=== PATIENT | female | born 1975 | race Caucasian/White ===

== ENCOUNTER 2016-08-27 09:19 | Emergency (ER) | payer OTHER ==
[~2016-08-27 09:19] MED LIST: CLAR5TAB7 PO; FLUTISP; PROBCAP4 PO; VITMTA PO; XARE15TA PO
[2016-08-27 10:17] LABS: BASO % 0.3 % (0.0-1.0); EOS # 0.3 K/mm3 (0.0-0.50); EOS % 4.1 % (0.0-3.0); LARGE UNSTAINED CELL # 0.1 K/mm3 (0.0-0.4); LARGE UNSTAINED CELL % 1.4 % (0.0-4.0); LYMPH # 1.8 K/mm3 (1.5-4.5); LYMPH % 22.8 % (24.0-44.0); MEAN CORPUSCULAR HGB CONC 32.9 g/dl (32.0-36.5); MEAN CORPUSCULAR VOLUME 88.2 fl (80.0-96.0); MONO # 0.3 K/mm3 (0.0-0.8); MONO % 4.3 % (0.0-5.0); PLATELET COUNT, AUTOMATED 276 k/mm3 (150-450); RED CELL DISTRIBUTION WIDTH 13.4 % (11.5-14.5); WHITE BLOOD COUNT 7.4 K/mm3 (4.0-10.0)
[2016-08-27] MEDS ORDERED: ONDANSETRON 4MG/2ML VIAL (J2405) As Ordered ONE (10:21)
[2016-08-27] MEDS ORDERED: MORPHINE 4 MG/ML 1ML SYRINGE As Ordered ONE (10:21)
[2016-08-27 10:22] LABS: CONTROL LINE HCG INT CTR LINE PRESENT
[2016-08-27 10:31] LABS: ANION GAP 8 MEQ/L (8-16); BLOOD UREA NITROGEN 10 MG/DL (7-18); CALCIUM LEVEL 8.6 MG/DL (8.5-10.1); CARBON DIOXIDE LEVEL 26 MEQ/L (21-32); CHLORIDE LEVEL 104 MEQ/L (98-107); CREATININE FOR GFR 0.65 MG/DL (0.55-1.02); GLOMERULAR FILTRATION RATE > 60.0 (>60); GLUCOSE, FASTING 97 MG/DL (70-105); POTASSIUM SERUM 3.9 MEQ/L (3.5-5.1); SODIUM LEVEL 138 MEQ/L (136-145)
--- NOTE | 2016-08-27 10:56 | REP ---
CT Head without contrast HISTORY: Syncope COMPARISON: None There is no intraparenchymal hemorrhage, acute infarct, mass or midline shift. The ventricular system is normal in appearance. There is no extra cerebral collection. There is no fracture. Mucosal thickening is present in the left ethmoid , frontal and sphenoid sinuses. IMPRESSION: There is no intracranial lesion. Signed by Rex Cox MD 08/27/2016 10:48 A
--- NOTE | 2016-08-27 11:34 | REP ---
Clinical: Syncope and chest pain . Comparison: 06/06/2016 . Findings: The mediastinum and cardiac silhouette are stable and within normal limits for portable technique. The lung gan are clear without acute consolidation, effusion, or pneumothorax. Skeletal structures are intact. Impression: Normal portable chest x-ray Signed by Hong Grant MD 08/27/2016 11:26 A
[2016-08-27] MEDS ORDERED: ISOVUE-370 76% 100ML VIAL (Q9967) As Ordered ONE (12:10)
--- NOTE | 2016-08-27 12:50 | REP ---
Clinical: Syncope with acute chest pain history of pulmonary embolus. Comparison: 05/09/2016. Technique: Axial contrast enhanced images from the thoracic inlet to the upper abdomen using 100 ml Isovue 370 intravenous contrast material with coronal and sagittal re-formations. Findings: Satisfactory enhancement of the pulmonary vasculature is achieved and no filling defects are identified to suggest pulmonary embolus. Thoracic aorta is normal caliber without aneurysm or dissection. Heart and pericardium are normal. Bilateral lung gan are well aerated and clear without acute pulmonary parenchymal consolidation or atelectasis. No nodule or mass lesion. No pleural effusion/reaction. No pneumothorax. No adenopathy. Impression: No evidence for pulmonary embolus. No acute pleuroparenchymal or mediastinal process. Signed by Hong Grant MD 08/27/2016 12:42 P
--- NOTE | 2016-08-27 16:32 | EDDOCDS ---
Nurse's Notes [facility] Name: Harleen Gar Age: 41 yrs Sex: Female : 1975 Arrival Date: 08/27/2016 Time: 09:19 Bed 6 Private MD: Bhavesh [facility] Diagnosis: Chest pain, unspecified;Syncope and collapse;Headache Presentation: 08/27 09:23 Presenting complaint: Patient states: Pt presents with c/o syncope and passed out dls during clinical's this morning. Pt has hx of PE last fall. Pt states does have chest left sided onset after she passed out. Pt also c/o headache c 2weeks with elevated heart rate. Adult Sepsis Screening: The patient does not have new or worsening altered mentation. Patient's respiratory rate is less than 22. Systolic blood pressure is greater than 100. Patient has a qSOFA score of 0- Negative Sepsis Screen. Suicide/Homicide risk assessment- the patient denies having any suicidal and/or homicidal ideations and does not present with any other emotional, behavioral or mental health complaints. Status: The patient is a dependent. Transition of care: patient was not received from another setting of care. 09:23 Acuity: ELICEO Level 3 dls 09:23 Method Of Arrival: Wheelchair dls Triage Assessment: 09:28 General: Appears in no apparent distress, well developed, well nourished, well groomed, dls Behavior is cooperative. Pain: Pain currently is 6 out of 10 on a pain scale. HIV screening NA for this visit Offered previously. NURSE EMERGENCY: 09:28 LMP 08/15/2016 dls Historical: - Allergies: SULFA (SULFONAMIDES) (Rash); - Home Meds: 1. Claritin-D 12 Hour 5-120 mg Oral Tb12 2. Xarelto 20 mg oral tab 1 tab once daily - PMHx: Heart Murmur; PE; - PSHx: ; Appendectomy; - Social history: Smoking status: Patient/guardian denies using No barriers to communication noted, The patient speaks fluent Botswanan. - Family history: Not pertinent. - : The pt / caregiver states he / she is on anticoagulants: Xarelto Home medication list is obtained from the patient, [employer] import data. - Exposure Risk Screening:: None identified. Screenin:28 Screening information is obtained from the patient. Fall risk: No risks identified. srm Assistance ADL's: requires no assistance with activities of daily living. Abuse/DV Screen: The patient / caregiver reports he/she is: not in a situation that causes fear, pain or injury. Nutritional screening: No deficits noted. Advance Directives: Currently, there is no health care proxy. There is no active DNR order. home support is adequate. Assessment: 10:09 General: Appears in no apparent distress, Behavior is appropriate for age, cooperative. srm Neurological: Level of Consciousness is awake, alert, Oriented to person, place, time, Engagement Manager are equal bilaterally Moves all extremities. Full function Speech is normal, Facial symmetry appears normal, Pupils are PERRLA. Cardiovascular: Rhythm is sinus rhythm. Respiratory: Airway is patent Respiratory effort is even, unlabored, Breath sounds are clear bilaterally. 10:51 General: Appears in no apparent distress, Behavior is appropriate for age, cooperative. srm Pain: Location: headache Pain currently is 5 out of 10 on a pain scale. 12:03 Reassessment: Patient appears in no apparent distress at this time. General: Appears in srm no apparent distress, Behavior is appropriate for age, cooperative. Neurological: Level of Consciousness is awake, alert, Oriented to person, place, time, Moves all extremities. Full function Speech is normal, Facial symmetry appears normal, Pupils are PERRLA. Respiratory: No deficits noted. GI: No deficits noted. Derm: No deficits noted. 13:30 General: resting on stretcher at bedside, voices no c/o. srm 13:30 Reassessment: Patient appears in no apparent distress at this time. General: Appears in srm no apparent distress, Behavior is appropriate for age, cooperative. Neurological: Level of Consciousness is awake, alert, Oriented to person, place, time, Engagement Manager are equal bilaterally Moves all extremities. Full function Speech is normal, Facial symmetry appears normal, Pupils are PERRLA. Cardiovascular: Rhythm is sinus rhythm. Respiratory: No deficits noted. Airway is patent Respiratory effort is even, unlabored, Breath sounds are clear bilaterally. Respiratory: No deficits noted. 16:25 General: Appears in no apparent distress, Behavior is appropriate for age, cooperative. srm Neurological: No deficits noted. Cardiovascular: No deficits noted. Respiratory: No deficits noted. GI: No deficits noted. Vital Signs: 09:22 BP 105 / 73; Pulse 53; Resp 18; Temp 97.9(O); Pulse Ox 100% on R/A; Weight 90.72 kg ct3 (R); Height 5 ft. 6 in. (167.64 cm) (R); Pain 6/10; 10:09 BP 109 / 61 LA Supine (auto/); Pulse 62; srm 10:10 BP 127 / 66 LA Sitting (auto/); Pulse 64; srm 10:10 BP 128 / 74 LA Standing (auto/); Pulse 68; srm 10:22 Pulse 66 MON; Pulse Ox 96% ; srm 10:22 BP 110 / 64 (auto/); srm 10:49 Pulse 66 MON; Pulse Ox 95% ; srm 10:49 BP 106 / 72 (auto/); srm 10:50 BP 106 / 72; Pulse 67; Resp 18; Pulse Ox 99% ; Pain 5/10; srm 10:52 Pulse 64 MON; Pulse Ox 95% ; srm 10:52 BP 110 / 76 (auto/); srm 16:21 Temp 98.2(T); lr2 09:22 Body Mass Index 32.28 (90.72 kg, 167.64 cm) ct3 Vitals: 09:22 Log In Time: August 27, 2016 at 09:19. RN notified that patient meets Red Flag ct3 criteria. 09:28 Glucose Measurement d-stick on floor 110. dls ED Course: 09:21 Patient visited by Sarah Braxton, JAYRO. ct3 09:21 Bhavesh is Private Physician. ct3 09:21 Bhavesh OB is Private Physician. ct3 09:21 Bhavesh [facility] is Private Physician. ct3 09:21 Patient moved to Waiting ct3 09:23 Patient moved to Pre RCE ct3 09:27 Triage Initiated dls 09:30 Patient moved to 6 dls 09:41 EKG done. Reviewed by Clint John MD. jam1 09:53 Clint John MD is Attending Physician. ml 09:53 Patient visited by Clint John MD. ml 10:05 [facility] Payment Agreement was scanned into 5app and attached to record. mm15 10:11 CARDIAC MARKER PANEL Sent. srm 10:51 Patient visited by Glenda Green RN. srm 11:16 CT Head Without Contrast Returned. EDMS 11:45 Chest, 1 View Returned. EDMS 12:09 Patient visited by Carol Varner PCA. ar3 13:09 Patient visited by Carol Varner PCA. ar3 13:17 CT Chest Angio R/O PE Returned. EDMS 13:46 Pt visited by . srm 13:46 Patient visited by Glenda Green, RN. srm 13:46 The patient / caregiver is instructed regarding the plan of care and ED course. Patient srm has correct armband on for positive identification. Placed in gown. Bed in low position. Call light in reach. Side rails up X2. on arrival. Diet: Patient given regular meal. 15:39 EKG done. (by ED staff). Reviewed by Clint John MD. ar3 15:44 Patient visited by Carol Varner PCA. ar3 16:06 Patient visited by Glenda Green, CARMEN. srm 16:13 DARLING Ospina is Referral Physician. ml 16:13 Cecil Dunham is Referral Physician. ml 16:28 Discontinued lock intact, bleeding controlled, pressure dressing applied, No srm redness/swelling at site. No procedures done that require assistance. Administered Medications: 10:34 Drug: morphine 4 mg Route: IVP; Site: left antecubital; k 10:50 Follow up: BP 106 / 72; Pulse 67 bpm; Resp 18 bpm; Pulse Ox 99% ; Pain 5/10 Adult srm 10:35 Drug: NS 0.9% 1000 ml Route: IV; Rate: bolus; Site: left antecubital; k 10:35 Drug: Ondansetron 4 mg Route: IVP; Site: left antecubital; k 10:51 Follow up: Response: No Adverse Reaction srm Order Results: Lab Order: CBC with Diff; SPEC'M 08/27/16 09:58 Test: WHITE BLOOD COUNT; Value: 7.4; Range: 4.0-10.0; Units: K/mm3; Status: F Test: RED BLOOD COUNT; Value: 4.63; Range: 4.00-5.40; Units: M/mm3; Status: F Test: HEMOGLOBIN; Value: 13.4; Range: 12.0-16.0; Units: g/dl; Status: F Test: HEMATOCRIT; Value: 40.8; Range: 36.0-47.0; Units: %; Status: F Test: MEAN CORPUSCULAR VOLUME; Value: 88.2; Range: 80.0-96.0; Units: fl; Status: F Test: MEAN CORPUSCULAR HEMOGLOBIN; Value: 29.0; Range: 27.0-33.0; Units: pg; Status: F Test: MEAN CORPUSCULAR HGB CONC; Value: 32.9; Range: 32.0-36.5; Units: g/dl; Status: F Test: RED CELL DISTRIBUTION WIDTH; Value: 13.4; Range: 11.5-14.5; Units: %; Status: F Test: PLATELET COUNT, AUTOMATED; Value: 276; Range: 150-450; Units: k/mm3; Status: F Test: NEUTROPHILS %; Value: 67.0; Range: 36.0-66.0; Abnormal: Above high normal; Units: %; Status: F Test: LYMPH %; Value: 22.8; Range: 24.0-44.0; Abnormal: Below low normal; Units: %; Status: F Test: MONO %; Value: 4.3; Range: 0.0-5.0; Units: %; Status: F Test: EOS %; Value: 4.1; Range: 0.0-3.0; Abnormal: Above high normal; Units: %; Status: F Test: BASO %; Value: 0.3; Range: 0.0-1.0; Units: %; Status: F Test: LARGE UNSTAINED CELL %; Value: 1.4; Range: 0.0-4.0; Units: %; Status: F Test: NEUTROPHILS #; Value: 5.0; Range: 1.8-7.7; Units: K/mm3; Status: F Test: LYMPH #; Value: 1.8; Range: 1.5-4.5; Units: K/mm3; Status: F Test: MONO #; Value: 0.3; Range: 0.0-0.8; Units: K/mm3; Status: F Test: EOS #; Value: 0.3; Range: 0.0-0.50; Units: K/mm3; Status: F Test: BASO #; Value: 0.0; Range: 0.0-0.2; Units: K/mm3; Status: F Test: LARGE UNSTAINED CELL #; Value: 0.1; Range: 0.0-0.4; Units: K/mm3; Status: F Lab Order: MED Profile; SPEC'M 08/27/16 09:58 Test: GLUCOSE, FASTING; Value: 97; Range: 70-105; Units: MG/DL; Status: F Test: BLOOD UREA NITROGEN; Value: 10; Range: 7-18; Units: MG/DL; Status: F Test: CREATININE FOR GFR; Value: 0.65; Range: 0.55-1.02; Units: MG/DL; Status: F Test: SODIUM LEVEL; Range: 136-145; Units: MEQ/L; Status: I Test: POTASSIUM SERUM; Range: 3.5-5.1; Units: MEQ/L; Status: I Test: CHLORIDE LEVEL; Range: 98-107; Units: MEQ/L; Status: I Test: CARBON DIOXIDE LEVEL; Range: 21-32; Units: MEQ/L; Status: I Test: ANION GAP; Range: 8-16; Units: MEQ/L; Status: I Test: CALCIUM LEVEL; Range: 8.5-10.1; Units: MG/DL; Status: I Test: GLOMERULAR FILTRATION RATE; Value: > 60.0; Range: >60; Status: F Test: SODIUM LEVEL; Value: 138; Range: 136-145; Units: MEQ/L; Status: F Test: POTASSIUM SERUM; Value: 3.9; Range: 3.5-5.1; Units: MEQ/L; Status: F Test: CHLORIDE LEVEL; Value: 104; Range: 98-107; Units: MEQ/L; Status: F Test: CARBON DIOXIDE LEVEL; Value: 26; Range: 21-32; Units: MEQ/L; Status: F Test: ANION GAP; Value: 8; Range: 8-16; Units: MEQ/L; Status: F Test: CALCIUM LEVEL; Value: 8.6; Range: 8.5-10.1; Units: MG/DL; Status: F Test Note: ; Units are mL/min/1.73 m2 Chronic Kidney Disease Staging per NKF: Stage I & II GFR >=60 Normal to Mildly Decreased Stage III GFR 30-59 Moderately Decreased Stage IV GFR 15-29 Severely Decreased Stage V GFR <15 Very Little GFR Left ESRD GFR <15 on NURSE HEAD Lab Order: CIP; [facility] 08/27/16 09:58 Test: CPK CREATINE PHOSPHOKINASE; Value: 47; Range: 26-192; Units: U/L; Status: F Test: CK-MB VALUE MASS; Value: 1.3; Range: 0.0-3.6; Units: NG/ML; Status: F Test: MB/CK RELATIVE INDEX; Value: 2.76; Range: < OR =4; Status: F Test Note: ; DIAGNOSIS CRITERIA MMB ng/ml Relative Index (RI) NON-AMI < or = 5 N/A GARCIA ZONE > 5 < or = 4 AMI > 5 > 4 Lab Order: Troponin; [facility] 08/27/16 09:58 Test: TROPONIN I; Value: < 0.02; Range: < 0.10; Units: NG/ML; Status: F Test Note: ; Troponin I Reference Interval for 20/[employer] LOCI: 99th Percentile= 0.00-0.045 ng/ml Risk Stratification: <= 0.10 ng/ml Decreased Risk for Adverse Clinical Events. 0.10-1.50 ng/ml Increased Risk for Adverse Clinical Events. Evaluation of additional criterion and/or repeat testing in 2-6 hours is suggested to rule out myocardial damage. >= 1.50 ng/ml Indicative of Myocardial Injury. Lab Order: HCG,Serum Qualitative; [facility] 08/27/16 09:58 Test: HCG, SERUM QUALITATIVE; Value: NEGATIVE; Range: NEGATIVE; Status: F Lab Order: CARDIAC MARKER PANEL; [facility] 08/27/16 15:19 Test: CPK CREATINE PHOSPHOKINASE; Value: 49; Range: 26-192; Units: U/L; Status: F Test: CK-MB VALUE MASS; Value: 1.0; Range: 0.0-3.6; Units: NG/ML; Status: F Test: MB/CK RELATIVE INDEX; Value: 2.04; Range: < OR =4; Status: F Test: TROPONIN I; Value: < 0.02; Range: < 0.10; Units: NG/ML; Status: F Test Note: ; DIAGNOSIS CRITERIA MMB ng/ml Relative Index (RI) NON-AMI < or = 5 N/A GARCIA ZONE > 5 < or = 4 AMI > 5 > 4 Radiology Order: Chest, 1 View Test: Chest, 1 View REASON FOR EXAMINATION: syncope, chest pain; Clinical: Syncope and chest pain .; ; Comparison: 06/06/2016 .; ; Findings:; The mediastinum and cardiac silhouette are stable and within normal limits for; portable technique. The lung gan are clear without acute consolidation,; effusion, or pneumothorax. Skeletal structures are intact.; ; Impression:; Normal portable chest x-ray; ; ; Signed by; Hong Grant MD 08/27/2016 11:26 A; Radiology Order: CT Head Without Contrast Test: CT Head Without Contrast REASON FOR EXAMINATION: scynope, fall, on xarelto; CT Head without contrast; ; HISTORY: Syncope; ; COMPARISON: None; ; There is no intraparenchymal hemorrhage, acute infarct, mass or midline shift.; The ventricular system is normal in appearance. There is no extra cerebral; collection. There is no fracture. Mucosal thickening is present in the left; ethmoid , frontal and sphenoid sinuses.; ; IMPRESSION: There is no intracranial lesion.; ; ; ; ; Signed by; Rex Cox MD 08/27/2016 10:48 A; Radiology Order: CT Chest Angio R/O PE Test: CT Chest Angio R/O PE REASON FOR EXAMINATION: syncope, hx pe; Clinical: Syncope with acute chest pain history of pulmonary embolus.; ; Comparison: 05/09/2016.; ; Technique: Axial contrast enhanced images from the thoracic inlet to the upper; abdomen using 100 ml Isovue 370 intravenous contrast material with coronal and; sagittal re-formations.; ; Findings: Satisfactory enhancement of the pulmonary vasculature is achieved and; no filling defects are identified to suggest pulmonary embolus. Thoracic aorta; is normal caliber without aneurysm or dissection. Heart and pericardium are; normal. Bilateral lung gan are well aerated and clear without acute pulmonary; parenchymal consolidation or atelectasis. No nodule or mass lesion. No pleural; effusion/reaction. No pneumothorax. No adenopathy.; ; Impression:; No evidence for pulmonary embolus.; No acute pleuroparenchymal or mediastinal process.; ; ; Signed by; Hong Grant MD 08/27/2016 12:42 P; Outcome: 16:13 Discharge ordered by Provider. ml 16:28 Discharge Assessment: Patient awake, alert and oriented x 3. No cognitive and/or srm functional deficits noted. Patient verbalized understanding of disposition instructions. patient administered narcotics - yes. Discharge Assessment: patient administered narcotics - yes. Pt provided with safe discharge. The following High Risk Discharge criteria are identified: None. Condition: stable Condition: improved. Discharge instructions given to patient, Instructed on discharge instructions, follow up and referral plans. Demonstrated understanding of instructions, Pt was receptive of discharge instructions/ teaching. CT Study completed. Property :Personal belongings accompany Pt. 16:31 Patient left the ED. srm Signatures: Dispatcher [employer] EDMS Clint John MD MD ml Knapp, JeanRN RN Glenda Bernard RN RN Cindy Valladares RN RN Giselle Kumar, HARDWARE DEVELOPER HARDWARE DEVELOPER jam1 Carol Varner, HARDWARE DEVELOPER HARDWARE DEVELOPER ar3 Braxton, Sarah, HARDWARE DEVELOPER HARDWARE DEVELOPER ct3 Lindsey Benavidez mm15 Devika Bender2 MTDShan
--- NOTE | 2016-08-27 16:32 | EDDOCDS ---
Physician Documentation [facility] Name: Harleen Gar Age: 41 yrs Sex: Female : 1975 Arrival Date: 08/27/2016 Time: 09:19 Bed 6 Private MD: DARLING Ospina Disposition: 08/27/16 16:13 Discharged to Home/Self Care. Impression: Chest pain, unspecified, Syncope and collapse, Headache. - Condition is Stable. - Discharge Instructions: Nonspecific Chest Pain, General Headache Without Cause, Syncope. - Medication Reconciliation, Work Release Form - 1 day, Local Pharmacy Hours form. - Follow up: DARLING Ospina; When: Tomorrow. Follow up: Cecil Dunham; When: 2 - 3 days. - Problem is new. - Symptoms have improved. - Notes: please follow up with your pcp. Dr Dunham is happy to see you in follow up. Return if worsening symptoms. Historical: - Allergies: SULFA (SULFONAMIDES) (Rash); - Home Meds: 1. Claritin-D 12 Hour 5-120 mg Oral Tb12 2. Xarelto 20 mg oral tab 1 tab once daily - PMHx: Heart Murmur; PE; - PSHx: ; Appendectomy; - Social history: Smoking status: Patient/guardian denies using No barriers to communication noted, The patient speaks fluent Macedonian. - Family history: Not pertinent. - : The pt / caregiver states he / she is on anticoagulants: Xarelto Home medication list is obtained from the patient, [employer] import data. - Exposure Risk Screening:: None identified. SPRAYER MACHINE: 08/27 09:28 LMP 08/15/2016 dls Vital Signs: 09:22 BP 105 / 73; Pulse 53; Resp 18; Temp 97.9(O); Pulse Ox 100% on R/A; Weight 90.72 kg / ct3 200 lbs (R); Height 5 ft. 6 in. (167.64 cm) (R); Pain 6/10; 10:09 BP 109 / 61 LA Supine (auto/); Pulse 62; srm 10:10 BP 127 / 66 LA Sitting (auto/); Pulse 64; srm 10:10 BP 128 / 74 LA Standing (auto/); Pulse 68; srm 10:22 Pulse 66 MON; Pulse Ox 96% ; srm 10:22 BP 110 / 64 (auto/); srm 10:49 Pulse 66 MON; Pulse Ox 95% ; srm 10:49 BP 106 / 72 (auto/); srm 10:50 BP 106 / 72; Pulse 67; Resp 18; Pulse Ox 99% ; Pain 5/10; srm 10:52 Pulse 64 MON; Pulse Ox 95% ; srm 10:52 BP 110 / 76 (auto/); srm 16:21 Temp 98.2(T); lr2 09:22 Body Mass Index 32.28 (90.72 kg, 167.64 cm) ct3 MDM: 09:35 ECG WITH READING ER PHYS+CARDIAG ordered. EDMS 09:56 Financial registration complete. mm15 10:02 IV Saline Lock ordered. ml 10:02 Belt Maker Helper/Pulse Ox/q 15 min VS ordered. ml 10:02 Rhythm Strip to chart ordered. ml 10:02 Repeat EKG (put time details section) ordered. ml 10:02 Redraw CIP &Troponin (put time in details section) ordered. ml 10:03 CBC with Diff Ordered. EDMS 10:03 MED Profile Ordered. EDMS 10:03 CIP Ordered. EDMS 10:03 Troponin Ordered. EDMS 10:03 HCG,Serum Qualitative Ordered. EDMS 10:03 Chest, 1 View Ordered. EDMS 10:04 CT Head Without Contrast Ordered. EDMS 10:05 [facility] Payment Agreement was scanned into [employer] and attached to record. mm15 10:07 Redraw CIP &Troponin (put time in details section) complete. rs6 10:07 Repeat EKG (put time details section) complete. rs6 10:07 CARDIAC MARKER PANEL Ordered. EDMS 10:08 ECG WITH READING ER PHYS ordered. EDMS 10:09 NS 0.9% 1000 ml IV at bolus once ordered. ml 10:09 Ondansetron 4 mg IVP once ordered. ml 10:09 morphine 4 mg IVP once ordered. ml 12:04 CBC with Diff Reviewed. ml 12:04 MED Profile Reviewed. ml 12:04 CIP Reviewed. ml 12:04 Troponin Reviewed. ml 12:04 HCG,Serum Qualitative Reviewed. ml 12:04 Chest, 1 View Reviewed. ml 12:04 CT Head Without Contrast Reviewed. ml 12:06 CT Chest Angio R/O PE Ordered. EDMS 13:04 REGULAR+DIET ordered. EDMS 16:03 CARDIAC MARKER PANEL Reviewed. ml 16:03 CT Chest Angio R/O PE Reviewed. ml Administered Medications: 10:34 Drug: morphine 4 mg Route: IVP; Site: left antecubital; [facility] 10:50 Follow up: BP 106 / 72; Pulse 67 bpm; Resp 18 bpm; Pulse Ox 99% ; Pain 5/10 Adult srm 10:35 Drug: NS 0.9% 1000 ml Route: IV; Rate: bolus; Site: left antecubital; k 10:35 Drug: Ondansetron 4 mg Route: IVP; Site: left antecubital; k 10:51 Follow up: Response: No Adverse Reaction srm Signatures: Dispatcher [employer] EDKY Clint John MD MD Glenda Green, RN Cindy Estrada RN RN dls McGrath, Marlynn mm15 June Acosta, KITCHEN WORKER KITCHEN WORKER rs6 Michael Balbuena RN The chart was reviewed and I authenticate all verbal orders and agree with the evaluation and treatment provided.Attachments: 10:05 [facility] Payment Agreement mm15 MTDD
--- NOTE | 2016-08-28 07:47 | ECGEPIP ---
Stationary ECG Study [facility] - ED Test Date: 2016-08-27 Pat Name: SPEEDY OLIVEIRA Department: Room: - Gender: F Shop Router: felisa : 1975 Requested By: Clint John Order Number: [id number] Reading MD: Xochilt Peng Measurements Intervals [place] Rate: 58 P: 15 MD: 161 QRS: 58 QRSD: 89 T: 16 QT: 419 QTc: 412 Interpretive Statements SINUS BRADYCARDIA DECREASED RATE 05/09/16 Electronically Signed On 08-28-2016 7:46:43 EST by Xochilt Peng
--- NOTE | 2016-08-28 08:05 | ECGEPIP ---
Stationary ECG Study [facility] - ED Test Date: 2016-08-27 Pat Name: SPEEDY OLIVEIRA Department: Room: - Gender: F Escalator Attendant: rosibel : 1975 Requested By: Clint John Order Number: [id number] Reading MD: Xochilt Peng Measurements Intervals [place] Rate: 62 P: 2 OH: 168 QRS: 61 QRSD: 94 T: 18 QT: 418 QTc: 427 Interpretive Statements SINUS RHYTHM LOW QRS VOLTAGE IN PRECORDIAL LEADS SIMILAR 08/27/16 9:41 Electronically Signed On 08-28-2016 8:04:41 EST by Xochilt Peng
--- NOTE | 2016-08-29 17:32 | EDDOCDS ---
Physician Documentation [facility] Name: Harleen Gar Age: 41 yrs Sex: Female : 1975 Arrival Date: 08/27/2016 Time: 09:19 Bed 6 Private MD: DARLING Ospina Disposition: 08/27/16 16:13 Discharged to Home/Self Care. Impression: Chest pain, unspecified, Syncope and collapse, Headache. - Condition is Stable. - Discharge Instructions: Nonspecific Chest Pain, General Headache Without Cause, Syncope. - Medication Reconciliation, Work Release Form - 1 day, Local Pharmacy Hours form. - Follow up: DARLING Ospina; When: Tomorrow. Follow up: Cecil Dunham; When: 2 - 3 days. - Problem is new. - Symptoms have improved. - Notes: please follow up with your pcp. Dr Dunham is happy to see you in follow up. Return if worsening symptoms. Historical: - Allergies: SULFA (SULFONAMIDES) (Rash); - Home Meds: 1. Claritin-D 12 Hour 5-120 mg Oral Tb12 2. Xarelto 20 mg oral tab 1 tab once daily - PMHx: Heart Murmur; PE; - PSHx: ; Appendectomy; - Social history: Smoking status: Patient/guardian denies using No barriers to communication noted, The patient speaks fluent Uzbek. - Family history: Not pertinent. - : The pt / caregiver states he / she is on anticoagulants: Xarelto Home medication list is obtained from the patient, [employer] import data. - Exposure Risk Screening:: None identified. 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 6 in. (167.64 cm) (R); Pain 6/10; 10:09 BP 109 / 61 LA Supine (auto/); Pulse 62; srm 10:10 BP 127 / 66 LA Sitting (auto/); Pulse 64; srm 10:10 BP 128 / 74 LA Standing (auto/); Pulse 68; srm 10:22 Pulse 66 MON; Pulse Ox 96% ; srm 10:22 BP 110 / 64 (auto/); srm 10:49 Pulse 66 MON; Pulse Ox 95% ; srm 10:49 BP 106 / 72 (auto/); srm 10:50 BP 106 / 72; Pulse 67; Resp 18; Pulse Ox 99% ; Pain 5/10; srm 10:52 Pulse 64 MON; Pulse Ox 95% ; srm 10:52 BP 110 / 76 (auto/); srm 16:21 Temp 98.2(T); lr2 09:22 Body Mass Index 32.28 (90.72 kg, 167.64 cm) ct3 MDM: 09:35 ECG WITH READING ER PHYS+CARDIAG ordered. EDMS 09:56 Financial registration complete. mm15 10:02 IV Saline Lock ordered. ml 10:02 Pl Sql Programmer/Pulse Ox/q 15 min VS ordered. ml 10:02 Rhythm Strip to chart ordered. ml 10:02 Repeat EKG (put time details section) ordered. ml 10:02 Redraw CIP &Troponin (put time in details section) ordered. ml 10:03 CBC with Diff Ordered. EDMS 10:03 MED Profile Ordered. EDMS 10:03 CIP Ordered. EDMS 10:03 Troponin Ordered. EDMS 10:03 HCG,Serum Qualitative Ordered. EDMS 10:03 Chest, 1 View Ordered. EDMS 10:04 CT Head Without Contrast Ordered. EDMS 10:05 [facility] Payment Agreement was scanned into [employer] and attached to record. mm15 10:07 Redraw CIP &Troponin (put time in details section) complete. rs6 10:07 Repeat EKG (put time details section) complete. rs6 10:07 CARDIAC MARKER PANEL Ordered. EDMS 10:08 ECG WITH READING ER PHYS ordered. EDMS 10:09 NS 0.9% 1000 ml IV at bolus once ordered. ml 10:09 Ondansetron 4 mg IVP once ordered. ml 10:09 morphine 4 mg IVP once ordered. ml 12:04 CBC with Diff Reviewed. ml 12:04 MED Profile Reviewed. ml 12:04 CIP Reviewed. ml 12:04 Troponin Reviewed. ml 12:04 HCG,Serum Qualitative Reviewed. ml 12:04 Chest, 1 View Reviewed. ml 12:04 CT Head Without Contrast Reviewed. ml 12:06 CT Chest Angio R/O PE Ordered. EDMS 13:04 REGULAR+DIET ordered. EDMS 16:03 CARDIAC MARKER PANEL Reviewed. 16:03 CT Chest Angio R/O PE Reviewed. 08/28 13:51 T-Sheet-- Draft Copy was scanned into [employer] and attached to record. gb 13:52 ECG/EKG was scanned into [employer] and attached to record. gb 13:52 Radiology Report was scanned into [employer] and attached to record. gb 13:53 Other: VITAL SIGNS was scanned into [employer] and attached to record. gb Administered Medications: 08/27 10:34 Drug: morphine 4 mg Route: IVP; Site: left antecubital; k 10:50 Follow up: BP 106 / 72; Pulse 67 bpm; Resp 18 bpm; Pulse Ox 99% ; Pain 5/10 Adult srm 10:35 Drug: NS 0.9% 1000 ml Route: IV; Rate: bolus; Site: left antecubital; jmk 10:35 Drug: Ondansetron 4 mg Route: IVP; Site: left antecubital; k 10:51 Follow up: Response: No Adverse Reaction srm Signatures: Dispatcher [employer] EDAK Clint John MD MD Glenda Green, RN RN srm Cindy Rod, RN RN dls Elena Morales, Reg Reg gb Lindsey Benavidez mm15 June Acosta, JAYRO ACCOUNTS PAYABLE OR RECEIVABLE CLERK rs6 Michael Balbuena RN The chart was reviewed and I authenticate all verbal orders and agree with the evaluation and treatment provided.Attachments: 10:05 [facility] Payment Agreement mm15 08/28 13:51 T-Sheet-- Draft Copy gb 13:52 ECG/EKG gb Chart Complete MTDD
--- NOTE | 2016-08-29 17:32 | EDDOCDS ---
Physician Documentation [facility] Name: Harleen Gar Age: 41 yrs Sex: Female : 1975 Arrival Date: 08/27/2016 Time: 09:19 Bed 6 Private MD: DARLING Ospina Disposition: 08/27/16 16:13 Discharged to Home/Self Care. Impression: Chest pain, unspecified, Syncope and collapse, Headache. - Condition is Stable. - Discharge Instructions: Nonspecific Chest Pain, General Headache Without Cause, Syncope. - Medication Reconciliation, Work Release Form - 1 day, Local Pharmacy Hours form. - Follow up: DARLING Ospina; When: Tomorrow. Follow up: Cecil Dunham; When: 2 - 3 days. - Problem is new. - Symptoms have improved. - Notes: please follow up with your pcp. Dr Dunham is happy to see you in follow up. Return if worsening symptoms. Historical: - Allergies: SULFA (SULFONAMIDES) (Rash); - Home Meds: 1. Claritin-D 12 Hour 5-120 mg Oral Tb12 2. Xarelto 20 mg oral tab 1 tab once daily - PMHx: Heart Murmur; PE; - PSHx: ; Appendectomy; - Social history: Smoking status: Patient/guardian denies using No barriers to communication noted, The patient speaks fluent Pashto. - Family history: Not pertinent. - : The pt / caregiver states he / she is on anticoagulants: Xarelto Home medication list is obtained from the patient, [employer] import data. - Exposure Risk Screening:: None identified. 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 6 in. (167.64 cm) (R); Pain 6/10; 10:09 BP 109 / 61 LA Supine (auto/); Pulse 62; srm 10:10 BP 127 / 66 LA Sitting (auto/); Pulse 64; srm 10:10 BP 128 / 74 LA Standing (auto/); Pulse 68; srm 10:22 Pulse 66 MON; Pulse Ox 96% ; srm 10:22 BP 110 / 64 (auto/); srm 10:49 Pulse 66 MON; Pulse Ox 95% ; srm 10:49 BP 106 / 72 (auto/); srm 10:50 BP 106 / 72; Pulse 67; Resp 18; Pulse Ox 99% ; Pain 5/10; srm 10:52 Pulse 64 MON; Pulse Ox 95% ; srm 10:52 BP 110 / 76 (auto/); srm 16:21 Temp 98.2(T); lr2 09:22 Body Mass Index 32.28 (90.72 kg, 167.64 cm) ct3 MDM: 09:35 ECG WITH READING ER PHYS+CARDIAG ordered. EDMS 09:56 Financial registration complete. mm15 10:02 IV Saline Lock ordered. ml 10:02 Engineering Production Worker/Pulse Ox/q 15 min VS ordered. ml 10:02 Rhythm Strip to chart ordered. ml 10:02 Repeat EKG (put time details section) ordered. ml 10:02 Redraw CIP &Troponin (put time in details section) ordered. ml 10:03 CBC with Diff Ordered. EDMS 10:03 MED Profile Ordered. EDMS 10:03 CIP Ordered. EDMS 10:03 Troponin Ordered. EDMS 10:03 HCG,Serum Qualitative Ordered. EDMS 10:03 Chest, 1 View Ordered. EDMS 10:04 CT Head Without Contrast Ordered. EDMS 10:05 [facility] Payment Agreement was scanned into [employer] and attached to record. mm15 10:07 Redraw CIP &Troponin (put time in details section) complete. rs6 10:07 Repeat EKG (put time details section) complete. rs6 10:07 CARDIAC MARKER PANEL Ordered. EDMS 10:08 ECG WITH READING ER PHYS ordered. EDMS 10:09 NS 0.9% 1000 ml IV at bolus once ordered. ml 10:09 Ondansetron 4 mg IVP once ordered. ml 10:09 morphine 4 mg IVP once ordered. ml 12:04 CBC with Diff Reviewed. ml 12:04 MED Profile Reviewed. ml 12:04 CIP Reviewed. ml 12:04 Troponin Reviewed. ml 12:04 HCG,Serum Qualitative Reviewed. ml 12:04 Chest, 1 View Reviewed. ml 12:04 CT Head Without Contrast Reviewed. ml 12:06 CT Chest Angio R/O PE Ordered. EDMS 13:04 REGULAR+DIET ordered. EDMS 16:03 CARDIAC MARKER PANEL Reviewed. 16:03 CT Chest Angio R/O PE Reviewed. 08/28 13:51 T-Sheet-- Draft Copy was scanned into [employer] and attached to record. gb 13:52 ECG/EKG was scanned into [employer] and attached to record. gb 13:52 Radiology Report was scanned into [employer] and attached to record. gb 13:53 Other: VITAL SIGNS was scanned into [employer] and attached to record. gb Administered Medications: 08/27 10:34 Drug: morphine 4 mg Route: IVP; Site: left antecubital; k 10:50 Follow up: BP 106 / 72; Pulse 67 bpm; Resp 18 bpm; Pulse Ox 99% ; Pain 5/10 Adult srm 10:35 Drug: NS 0.9% 1000 ml Route: IV; Rate: bolus; Site: left antecubital; jmk 10:35 Drug: Ondansetron 4 mg Route: IVP; Site: left antecubital; k 10:51 Follow up: Response: No Adverse Reaction srm Signatures: Dispatcher [employer] EDMA Clint John MD MD Glenda Green, RN RN srm Cindy Rod, RN RN dls Elena Morales, Reg Reg gb Lindsey Benavidez mm15 June Acosta, JAYRO FIELD SUPPORT ENGINEER rs6 Michael Balbuena RN The chart was reviewed and I authenticate all verbal orders and agree with the evaluation and treatment provided.Attachments: 10:05 [facility] Payment Agreement mm15 08/28 13:51 T-Sheet-- Draft Copy gb 13:52 ECG/EKG gb Chart Complete MTDD
--- NOTE | 2016-08-29 17:32 | EDDOCDS ---
Nurse's Notes [facility] Name: Harleen Oliveira Age: 41 yrs Sex: Female : 1975 Arrival Date: 08/27/2016 Time: 09:19 Bed 6 Private MD: Bhavesh [facility] Diagnosis: Chest pain, unspecified;Syncope and collapse;Headache Presentation: 08/27 09:23 Presenting complaint: Patient states: Pt presents with c/o syncope and passed out dls during clinical's this morning. Pt has hx of PE last fall. Pt states does have chest left sided onset after she passed out. Pt also c/o headache c 2weeks with elevated heart rate. Adult Sepsis Screening: The patient does not have new or worsening altered mentation. Patient's respiratory rate is less than 22. Systolic blood pressure is greater than 100. Patient has a qSOFA score of 0- Negative Sepsis Screen. Suicide/Homicide risk assessment- the patient denies having any suicidal and/or homicidal ideations and does not present with any other emotional, behavioral or mental health complaints. Status: The patient is a dependent. Transition of care: patient was not received from another setting of care. 09:23 Acuity: ELICEO Level 3 dls 09:23 Method Of Arrival: Wheelchair dls Triage Assessment: 09:28 General: Appears in no apparent distress, well developed, well nourished, well groomed, dls Behavior is cooperative. Pain: Pain currently is 6 out of 10 on a pain scale. HIV screening NA for this visit Offered previously. USER SUPPORT ANALYST: 09:28 LMP 08/15/2016 dls Historical: - Allergies: SULFA (SULFONAMIDES) (Rash); - Home Meds: 1. Claritin-D 12 Hour 5-120 mg Oral Tb12 2. Xarelto 20 mg oral tab 1 tab once daily - PMHx: Heart Murmur; PE; - PSHx: ; Appendectomy; - Social history: Smoking status: Patient/guardian denies using No barriers to communication noted, The patient speaks fluent [place]. - Family history: Not pertinent. - : The pt / caregiver states he / she is on anticoagulants: Xarelto Home medication list is obtained from the patient, [employer] import data. - Exposure Risk Screening:: None identified. Screenin:28 Screening information is obtained from the patient. Fall risk: No risks identified. srm Assistance ADL's: requires no assistance with activities of daily living. Abuse/DV Screen: The patient / caregiver reports he/she is: not in a situation that causes fear, pain or injury. Nutritional screening: No deficits noted. Advance Directives: Currently, there is no health care proxy. There is no active DNR order. home support is adequate. Assessment: 10:09 General: Appears in no apparent distress, Behavior is appropriate for age, cooperative. srm Neurological: Level of Consciousness is awake, alert, Oriented to person, place, time, Electric Stop Installer are equal bilaterally Moves all extremities. Full function Speech is normal, Facial symmetry appears normal, Pupils are PERRLA. Cardiovascular: Rhythm is sinus rhythm. Respiratory: Airway is patent Respiratory effort is even, unlabored, Breath sounds are clear bilaterally. 10:51 General: Appears in no apparent distress, Behavior is appropriate for age, cooperative. srm Pain: Location: headache Pain currently is 5 out of 10 on a pain scale. 12:03 Reassessment: Patient appears in no apparent distress at this time. General: Appears in srm no apparent distress, Behavior is appropriate for age, cooperative. Neurological: Level of Consciousness is awake, alert, Oriented to person, place, time, Moves all extremities. Full function Speech is normal, Facial symmetry appears normal, Pupils are PERRLA. Respiratory: No deficits noted. GI: No deficits noted. Derm: No deficits noted. 13:30 General: resting on stretcher at bedside, voices no c/o. srm 13:30 Reassessment: Patient appears in no apparent distress at this time. General: Appears in srm no apparent distress, Behavior is appropriate for age, cooperative. Neurological: Level of Consciousness is awake, alert, Oriented to person, place, time, Electric Stop Installer are equal bilaterally Moves all extremities. Full function Speech is normal, Facial symmetry appears normal, Pupils are PERRLA. Cardiovascular: Rhythm is sinus rhythm. Respiratory: No deficits noted. Airway is patent Respiratory effort is even, unlabored, Breath sounds are clear bilaterally. Respiratory: No deficits noted. 16:25 General: Appears in no apparent distress, Behavior is appropriate for age, cooperative. srm Neurological: No deficits noted. Cardiovascular: No deficits noted. Respiratory: No deficits noted. GI: No deficits noted. Vital Signs: 09:22 BP 105 / 73; Pulse 53; Resp 18; Temp 97.9(O); Pulse Ox 100% on R/A; Weight 90.72 kg ct3 (R); Height 5 ft. 6 in. (167.64 cm) (R); Pain 6/10; 10:09 BP 109 / 61 LA Supine (auto/); Pulse 62; srm 10:10 BP 127 / 66 LA Sitting (auto/); Pulse 64; srm 10:10 BP 128 / 74 LA Standing (auto/); Pulse 68; srm 10:22 Pulse 66 MON; Pulse Ox 96% ; srm 10:22 BP 110 / 64 (auto/); srm 10:49 Pulse 66 MON; Pulse Ox 95% ; srm 10:49 BP 106 / 72 (auto/); srm 10:50 BP 106 / 72; Pulse 67; Resp 18; Pulse Ox 99% ; Pain 5/10; srm 10:52 Pulse 64 MON; Pulse Ox 95% ; srm 10:52 BP 110 / 76 (auto/); srm 16:21 Temp 98.2(T); lr2 09:22 Body Mass Index 32.28 (90.72 kg, 167.64 cm) ct3 Vitals: 09:22 Log In Time: August 27, 2016 at 09:19. RN notified that patient meets Red Flag ct3 criteria. 09:28 Glucose Measurement d-stick on floor 110. dls ED Course: 09:21 Patient visited by Sarah Braxton, JAYRO. ct3 09:21 Bhavesh is Private Physician. ct3 09:21 Bhavesh OB is Private Physician. ct3 09:21 Bhavesh [facility] is Private Physician. ct3 09:21 Patient moved to Waiting ct3 09:23 Patient moved to Pre RCE ct3 09:27 Triage Initiated dls 09:30 Patient moved to 6 dls 09:41 EKG done. Reviewed by Clint John MD. jam1 09:53 Clint John MD is Attending Physician. ml 09:53 Patient visited by Clint John MD. ml 10:05 [facility] Payment Agreement was scanned into [employer] and attached to record. mm15 10:11 CARDIAC MARKER PANEL Sent. srm 10:51 Patient visited by Glenda Green RN. srm 11:16 CT Head Without Contrast Returned. EDMS 11:45 Chest, 1 View Returned. EDMS 12:09 Patient visited by Carol Varner PCA. ar3 13:09 Patient visited by Carol Varner PCA. ar3 13:17 CT Chest Angio R/O PE Returned. EDMS 13:46 Pt visited by . srm 13:46 Patient visited by Glenda Green, RN. srm 13:46 The patient / caregiver is instructed regarding the plan of care and ED course. Patient srm has correct armband on for positive identification. Placed in gown. Bed in low position. Call light in reach. Side rails up X2. on arrival. Diet: Patient given regular meal. 15:39 EKG done. (by ED staff). Reviewed by Clint John MD. ar3 15:44 Patient visited by Carol Varner PCA. ar3 16:06 Patient visited by Glenda Green, RN. srm 16:13 DARLING Ospina is Referral Physician. ml 16:13 Cecil Dunham is Referral Physician. ml 16:28 Discontinued lock intact, bleeding controlled, pressure dressing applied, No srm redness/swelling at site. No procedures done that require assistance. 08/28 08:04 EKG-ADULT Returned. EDMS 08:40 ECG WITH READING ER PHYS Returned. EDMS 13:51 T-Sheet-- Draft Copy was scanned into [employer] and attached to record. gb 13:52 ECG/EKG was scanned into [employer] and attached to record. gb 13:52 Radiology Report was scanned into [employer] and attached to record. gb 13:53 Other: VITAL SIGNS was scanned into [employer] and attached to record. gb Administered Medications: 08/27 10:34 Drug: morphine 4 mg Route: IVP; Site: left antecubital; k 10:50 Follow up: BP 106 / 72; Pulse 67 bpm; Resp 18 bpm; Pulse Ox 99% ; Pain 5/10 Adult srm 10:35 Drug: NS 0.9% 1000 ml Route: IV; Rate: bolus; Site: left antecubital; jmk 10:35 Drug: Ondansetron 4 mg Route: IVP; Site: left antecubital; jmk 10:51 Follow up: Response: No Adverse Reaction srm Order Results: Lab Order: CBC with Diff; SPEC'M 08/27/16 09:58 Test: WHITE BLOOD COUNT; Value: 7.4; Range: 4.0-10.0; Units: K/mm3; Status: F Test: RED BLOOD COUNT; Value: 4.63; Range: 4.00-5.40; Units: M/mm3; Status: F Test: HEMOGLOBIN; Value: 13.4; Range: 12.0-16.0; Units: g/dl; Status: F Test: HEMATOCRIT; Value: 40.8; Range: 36.0-47.0; Units: %; Status: F Test: MEAN CORPUSCULAR VOLUME; Value: 88.2; Range: 80.0-96.0; Units: fl; Status: F Test: MEAN CORPUSCULAR HEMOGLOBIN; Value: 29.0; Range: 27.0-33.0; Units: pg; Status: F Test: MEAN CORPUSCULAR HGB CONC; Value: 32.9; Range: 32.0-36.5; Units: g/dl; Status: F Test: RED CELL DISTRIBUTION WIDTH; Value: 13.4; Range: 11.5-14.5; Units: %; Status: F Test: PLATELET COUNT, AUTOMATED; Value: 276; Range: 150-450; Units: k/mm3; Status: F Test: NEUTROPHILS %; Value: 67.0; Range: 36.0-66.0; Abnormal: Above high normal; Units: %; Status: F Test: LYMPH %; Value: 22.8; Range: 24.0-44.0; Abnormal: Below low normal; Units: %; Status: F Test: MONO %; Value: 4.3; Range: 0.0-5.0; Units: %; Status: F Test: EOS %; Value: 4.1; Range: 0.0-3.0; Abnormal: Above high normal; Units: %; Status: F Test: BASO %; Value: 0.3; Range: 0.0-1.0; Units: %; Status: F Test: LARGE UNSTAINED CELL %; Value: 1.4; Range: 0.0-4.0; Units: %; Status: F Test: NEUTROPHILS #; Value: 5.0; Range: 1.8-7.7; Units: K/mm3; Status: F Test: LYMPH #; Value: 1.8; Range: 1.5-4.5; Units: K/mm3; Status: F Test: MONO #; Value: 0.3; Range: 0.0-0.8; Units: K/mm3; Status: F Test: EOS #; Value: 0.3; Range: 0.0-0.50; Units: K/mm3; Status: F Test: BASO #; Value: 0.0; Range: 0.0-0.2; Units: K/mm3; Status: F Test: LARGE UNSTAINED CELL #; Value: 0.1; Range: 0.0-0.4; Units: K/mm3; Status: F Lab Order: MED Profile; SPECM 08/27/16 09:58 Test: GLUCOSE, FASTING; Value: 97; Range: 70-105; Units: MG/DL; Status: F Test: BLOOD UREA NITROGEN; Value: 10; Range: 7-18; Units: MG/DL; Status: F Test: CREATININE FOR GFR; Value: 0.65; Range: 0.55-1.02; Units: MG/DL; Status: F Test: SODIUM LEVEL; Range: 136-145; Units: MEQ/L; Status: I Test: POTASSIUM SERUM; Range: 3.5-5.1; Units: MEQ/L; Status: I Test: CHLORIDE LEVEL; Range: 98-107; Units: MEQ/L; Status: I Test: CARBON DIOXIDE LEVEL; Range: 21-32; Units: MEQ/L; Status: I Test: ANION GAP; Range: 8-16; Units: MEQ/L; Status: I Test: CALCIUM LEVEL; Range: 8.5-10.1; Units: MG/DL; Status: I Test: GLOMERULAR FILTRATION RATE; Value: > 60.0; Range: >60; Status: F Test: SODIUM LEVEL; Value: 138; Range: 136-145; Units: MEQ/L; Status: F Test: POTASSIUM SERUM; Value: 3.9; Range: 3.5-5.1; Units: MEQ/L; Status: F Test: CHLORIDE LEVEL; Value: 104; Range: 98-107; Units: MEQ/L; Status: F Test: CARBON DIOXIDE LEVEL; Value: 26; Range: 21-32; Units: MEQ/L; Status: F Test: ANION GAP; Value: 8; Range: 8-16; Units: MEQ/L; Status: F Test: CALCIUM LEVEL; Value: 8.6; Range: 8.5-10.1; Units: MG/DL; Status: F Test Note: ; Units are mL/min/1.73 m2 Chronic Kidney Disease Staging per NKF: Stage I & II GFR >=60 Normal to Mildly Decreased Stage III GFR 30-59 Moderately Decreased Stage IV GFR 15-29 Severely Decreased Stage V GFR <15 Very Little GFR Left ESRD GFR <15 on CELLOPHANER Lab Order: CIP; 08/27/16 09:58 Test: CPK CREATINE PHOSPHOKINASE; Value: 47; Range: 26-192; Units: U/L; Status: F Test: CK-MB VALUE MASS; Value: 1.3; Range: 0.0-3.6; Units: NG/ML; Status: F Test: MB/CK RELATIVE INDEX; Value: 2.76; Range: < OR =4; Status: F Test Note: ; DIAGNOSIS CRITERIA MMB ng/ml Relative Index (RI) NON-AMI < or = 5 N/A GARCIA ZONE > 5 < or = 4 AMI > 5 > 4 Lab Order: Troponin; 08/27/16 09:58 Test: TROPONIN I; Value: < 0.02; Range: < 0.10; Units: NG/ML; Status: F Test Note: ; Troponin I Reference Interval for Siemens Tellybean LOCI: 99th Percentile= 0.00-0.045 ng/ml Risk Stratification: <= 0.10 ng/ml Decreased Risk for Adverse Clinical Events. 0.10-1.50 ng/ml Increased Risk for Adverse Clinical Events. Evaluation of additional criterion and/or repeat testing in 2-6 hours is suggested to rule out myocardial damage. >= 1.50 ng/ml Indicative of Myocardial Injury. Lab Order: HCG,Serum Qualitative; 08/27/16 09:58 Test: HCG, SERUM QUALITATIVE; Value: NEGATIVE; Range: NEGATIVE; Status: F Lab Order: CARDIAC MARKER PANEL; 08/27/16 15:19 Test: CPK CREATINE PHOSPHOKINASE; Value: 49; Range: 26-192; Units: U/L; Status: F Test: CK-MB VALUE MASS; Value: 1.0; Range: 0.0-3.6; Units: NG/ML; Status: F Test: MB/CK RELATIVE INDEX; Value: 2.04; Range: < OR =4; Status: F Test: TROPONIN I; Value: < 0.02; Range: < 0.10; Units: NG/ML; Status: F Test Note: ; DIAGNOSIS CRITERIA MMB ng/ml Relative Index (RI) NON-AMI < or = 5 N/A GARCIA ZONE > 5 < or = 4 AMI > 5 > 4 Radiology Order: EKG-ADULT Test: EKG-ADULT REASON FOR EXAMINATION: Syncope; Stationary ECG Study; [facility] - ED; ; Test Date: 2016-08-27; Pat Name: HARLEEN OLIVEIRA Department:; Room: -; Gender: 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: ; : 1975 Requested By: Clint John; Order Number: [id number] Reading MD: Xochilt Peng; Measurements; Intervals [place]; Rate: 58 P: 15; CT: 161 QRS: 58; QRSD: 89 T: 16; QT: 419; QTc: 412; Interpretive Statements; SINUS BRADYCARDIA; DECREASED RATE 05/09/16; Electronically Signed On 08-28-2016 7:46:43 EST by Xochilt Peng; Radiology Order: Chest, 1 View Test: Chest, 1 View REASON FOR EXAMINATION: syncope, chest pain; Clinical: Syncope and chest pain .; ; Comparison: 06/06/2016 .; ; Findings:; The mediastinum and cardiac silhouette are stable and within normal limits for; portable technique. The lung gan are clear without acute consolidation,; effusion, or pneumothorax. Skeletal structures are intact.; ; Impression:; Normal portable chest x-ray; ; ; Signed by; Hong Grant MD 08/27/2016 11:26 A; Radiology Order: CT Head Without Contrast Test: CT Head Without Contrast REASON FOR EXAMINATION: scynope, fall, on xarelto; CT Head without contrast; ; HISTORY: Syncope; ; COMPARISON: None; ; There is no intraparenchymal hemorrhage, acute infarct, mass or midline shift.; The ventricular system is normal in appearance. There is no extra cerebral; collection. There is no fracture. Mucosal thickening is present in the left; ethmoid , frontal and sphenoid sinuses.; ; IMPRESSION: There is no intracranial lesion.; ; ; ; ; Signed by; Rex Cox MD 08/27/2016 10:48 A; Radiology Order: ECG WITH READING ER PHYS Test: ECG WITH READING ER PHYS REASON FOR EXAMINATION: REPEAT; Stationary ECG Study; [facility] - ED; ; Test Date: 2016-08-27; Pat Name: HARLEEN OLIVEIRA Department:; Room: -; Gender: 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: rosibel; : 1975 Requested By: Clint John; Order Number: [id number] Reading MD: Xochilt Peng; Measurements; Intervals [place]; Rate: 62 P: 2; CT: 168 QRS: 61; QRSD: 94 T: 18; QT: 418; QTc: 427; Interpretive Statements; SINUS RHYTHM; LOW QRS VOLTAGE IN PRECORDIAL LEADS; SIMILAR 08/27/16 9:41; Electronically Signed On 08-28-2016 8:04:41 EST by Xochilt Peng; Radiology Order: CT Chest Angio R/O PE Test: CT Chest Angio R/O PE REASON FOR EXAMINATION: syncope, hx pe; Clinical: Syncope with acute chest pain history of pulmonary embolus.; ; Comparison: 05/09/2016.; ; Technique: Axial contrast enhanced images from the thoracic inlet to the upper; abdomen using 100 ml Isovue 370 intravenous contrast material with coronal and; sagittal re-formations.; ; Findings: Satisfactory enhancement of the pulmonary vasculature is achieved and; no filling defects are identified to suggest pulmonary embolus. Thoracic aorta; is normal caliber without aneurysm or dissection. Heart and pericardium are; normal. Bilateral lung gan are well aerated and clear without acute pulmonary; parenchymal consolidation or atelectasis. No nodule or mass lesion. No pleural; effusion/reaction. No pneumothorax. No adenopathy.; ; Impression:; No evidence for pulmonary embolus.; No acute pleuroparenchymal or mediastinal process.; ; ; Signed by; Hong Grant MD 08/27/2016 12:42 P; Outcome: 16:13 Discharge ordered by Provider. ml 16:28 Discharge Assessment: Patient awake, alert and oriented x 3. No cognitive and/or srm functional deficits noted. Patient verbalized understanding of disposition instructions. patient administered narcotics - yes. Discharge Assessment: patient administered narcotics - yes. Pt provided with safe discharge. The following High Risk Discharge criteria are identified: None. Condition: stable Condition: improved. Discharge instructions given to patient, Instructed on discharge instructions, follow up and referral plans. Demonstrated understanding of instructions, Pt was receptive of discharge instructions/ teaching. CT Study completed. Property :Personal belongings accompany Pt. 16:31 Patient left the ED. srm Signatures: Dispatcher [employer] EDMS Clint John MD MD ml Knapp, Jean, RN RN Glenda Bernard RN RN srm Scott, Debra, RN RN Giselle Kumar, SNOW PLOW TRACTOR OPERATOR SNOW PLOW TRACTOR OPERATOR jam1 Brianne Moralesria, Reg Reg gb Carol Varner, SNOW PLOW TRACTOR OPERATOR SNOW PLOW TRACTOR OPERATOR ar3 Sarah Braxton, SNOW PLOW TRACTOR OPERATOR SNOW PLOW TRACTOR OPERATOR ct3 Lindsey Benavidez mm15 Devika Bender2 Chart Complete [facility]
== END 2016-08-27 16:31 | disposition home or self-care (01) ==
LOC: M ED 09:19
DX: R55 Syncope and collapse (principal); R51 Headache; R07.89 Other chest pain; R01.1 Cardiac murmur, unspecified; Z86.711 Personal history of pulmonary embolism; Z79.01 Long term (current) use of anticoagulants; Z88.2 Allergy status to sulfonamides
CPT/HCPCS: 36415; 70450; 71010; 71275; 80048; 82550; 82553; 84703; 85025; 93005; 93041; 96374; 96375; 99285; J2405; Q9967

== ENCOUNTER → 2016-11-21 | Outpatient (CLI) | payer OTHER ==
--- NOTE | 2016-11-22 05:46 | REP ---
Clinical: Pulmonary embolus with pain. Technique: Chance scale and color Doppler evaluation using linear high frequency transducer. Findings: Ultrasound examination of the right and left lower extremity deep venous structures from the common femoral vein to the popliteal vein demonstrates normal compressibility flow and wave patterns in response to respiration and augmentation. There is no evidence for deep venous thrombosis. Impression: No evidence for deep venous thrombosis of the bilateral lower extremities. Signed by Hong Grant MD 11/22/2016 05:37 A
== END ==
LOC: M RAD 14:40
PROVIDERS: ATTEND Internal Medicine Medical Oncology
DX: I26.99 Other pulmonary embolism without acute cor pulmonale (principal)

== ENCOUNTER 2017-01-22 08:48 | Emergency (ER) | payer OTHER ==
[~2017-01-22] VITALS: Ht 167.6 cm; Wt 97.9 kg
[2017-01-22] MEDS ORDERED: ASPI1TAB PO (09:08)
[2017-01-22] MEDS ORDERED: ASPIRIN 81 MG CHEW TABLET PO ONE (09:15)
--- NOTE | 2017-01-22 09:38 | REP ---
Chest one-view HISTORY: Chest pain Comparison: 08/27/2016 The lungs are clear. The heart is normal in size. The pulmonary vasculature is normal in appearance. Impression: No acute disease. Signed by Rex Cox MD 01/22/2017 09:30 A
[2017-01-22 09:43] LABS: BASO % 0.4 % (0.0-1.0); EOS # 0.2 K/mm3 (0.0-0.50); EOS % 4.4 % (0.0-3.0); LARGE UNSTAINED CELL # 0.1 K/mm3 (0.0-0.4); LARGE UNSTAINED CELL % 1.5 % (0.0-4.0); LYMPH # 1.7 K/mm3 (1.5-4.5); LYMPH % 30.1 % (24.0-44.0); MEAN CORPUSCULAR HEMOGLOBIN 30.2 pg (27.0-33.0); MEAN CORPUSCULAR HGB CONC 33.4 g/dl (32.0-36.5); MEAN CORPUSCULAR VOLUME 90.5 fl (80.0-96.0); MONO # 0.3 K/mm3 (0.0-0.8); NEUTROPHILS # 3.2 K/mm3 (1.8-7.7); NEUTROPHILS % 57.7 % (36.0-66.0); PLATELET COUNT, AUTOMATED 293 k/mm3 (150-450); RED CELL DISTRIBUTION WIDTH 13.7 % (11.5-14.5); WHITE BLOOD COUNT 5.5 K/mm3 (4.0-10.0)
[2017-01-22 09:51] LABS: ANION GAP 7 MEQ/L (8-16); BLOOD UREA NITROGEN 8 MG/DL (7-18); CARBON DIOXIDE LEVEL 24 MEQ/L (21-32); CHLORIDE LEVEL 109 MEQ/L (98-107); CREATININE FOR GFR 0.68 MG/DL (0.55-1.02); GLOMERULAR FILTRATION RATE > 60.0 (>60); GLUCOSE, FASTING 98 MG/DL (70-105); POTASSIUM SERUM 3.9 MEQ/L (3.5-5.1); SODIUM LEVEL 140 MEQ/L (136-145)
[2017-01-22] MEDS ORDERED: ISOVUE-370 76% 100ML VIAL (Q9967) As Ordered ONE (10:10)
[2017-01-22 10:14] LABS: INR 1.06
--- NOTE | 2017-01-22 10:58 | REP ---
CT ANGIO CHEST: HISTORY: Pleuritic chest pain. CONTRAST: Isovue 370, 75 mL. There are no filling defects in the main , right and left pulmonary arteries or their branches. The lungs are clear. There is no pleural effusion. There is no mediastinal mass. The heart is normal in size. IMPRESSION: There is no pulmonary embolism. Signed by Rex Cox MD 01/22/2017 11:16 A
[2017-01-22 16:39] VITALS: BP 110/63
--- NOTE | 2017-01-22 18:27 | ECGEPIP ---
Stationary ECG Study [facility] - ED Test Date: 2017-01-22 Pat Name: SPEEDY OLIVEIRA Department: Room: - Gender: F Bankruptcy Attorney: joe : 1975 Requested By: RADHA Perez Order Number: [id number] Reading MD: Xochilt Peng Measurements Intervals [place] Rate: 53 P: 14 CO: 171 QRS: 66 QRSD: 87 T: 31 QT: 433 QTc: 408 Interpretive Statements SINUS BRADYCARDIA LOW QRS VOLTAGE IN PRECORDIAL LEADS DECREASED RATE 08/27/16 Electronically Signed On 01-22-2017 18:26:48 EDT by Xochilt Peng
--- NOTE | 2017-01-22 18:31 | ECGEPIP ---
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
== END 2017-01-22 16:52 | disposition home or self-care (01) ==
LOC: M ED 08:48
DX: R07.9 Chest pain, unspecified (principal); R00.1 Bradycardia, unspecified; Z79.899 Other long term (current) drug therapy; Z88.2 Allergy status to sulfonamides; Z91.02 Food additives allergy status
CPT/HCPCS: 36415; 71010; 71275; 80048; 82550; 82553; 85025; 85610; 85730; 93005; 93041; 94760; 99285; Q9967

== ENCOUNTER → 2017-02-01 | Day surgery (SDC) | payer OTHER ==
[~2017-02-01] VITALS: Ht 157.5 cm; Wt 95.3 kg
[~2017-02-01] MED LIST changes: +ACETAMINOPHEN TAB 650MG DOSE (2X325MG) As Ordered ONE; +ACETAMINOPHEN TAB 650MG DOSE (2X325MG) PO PRN; +ASPI1TAB PO; +LIDOCAINE 1% SDV INJ 30 ML VIAL As Ordered ONE; +LIDOCAINE 2% INJ 100 MG/5 ML SDV (FOR ANES.) As Ordered ONE; +LR 1,000 ML IV ONE; +MIDAZOLAM INJ 2 MG/2 ML VIAL (J2250) As Ordered ONE; +ONDANSETRON 4MG/2ML VIAL (J2405) As Ordered ONE; +ONDANSETRON 4MG/2ML VIAL (J2405) IV ONE; +PROPOFOL 200 MG/20 ML VIAL As Ordered ONE; +fentaNYL 100 MCG/2 ML INJECTION (J3010) As Ordered ONE
--- NOTE | 2017-02-01 16:29 | RO ---
DATE OF PROCEDURE: 02/01/2017 PREPROCEDURE DIAGNOSIS: Recurrent unexplained syncope. POSTPROCEDURE DIAGNOSIS: Recurrent unexplained syncope. FINDINGS: Recurrent unexplained syncope. PROCEDURE: Implantation of Medtronic implantable loop recorder. SURGEON: Hollis Izquierdo MD EMU FARMER: None. ANESTHESIA: Local/monitored anesthetic care. No specimens. Estimated blood loss: Less than 1 mL. No blood products replaced. No drains. No complications. DESCRIPTION OF PROCEDURE: The patient was prepped and draped over the left anterior chest and sternum. Lidocaine 1% was used for local anesthetic. An incision approximately 1 cm in length was made with a #15 blade about one-inch lateral to the left parasternal border, approximately at the fourth left interspace. Next, the insertion tool guide was placed into the incision and advanced parallel to the skin in a caudal direction in the subcutaneous layer. The insertion tool was then rotated 180 degrees. Next, a plunger was placed into the insertion tool and then used to advance the implantable loop recorder into the subcutaneous fat. The plunger was then removed and then the insertion tool was removed leaving the loop recorder in place. The initial R wave amplitude was 0.45 millivolts. The incision was then approximated using #4-0 Biosyn suture with the start and finish of the suture at the level of the skin about half a centimeter to either side of the incision edges. This was threaded subcutaneously. The suture ends were not tied but rather were held under tension to keep the incision well approximated during the application of Dermabond. Two layers of Dermabond was applied. The free ends of the suture were then snipped at the level of the skin without tying them. The implantable loop recorder implanted was a Cardiosonic Reveal LINQ, model #LNQ11 with serial #[id number]. Copies to: Dr. Reinaldo Desir
[2017-02-01 17:15] VITALS: BP 114/72
== END | disposition home or self-care (01) ==
LOC: M SDC 12:24
PROVIDERS: ATTEND Internal Medicine Cardiovascular Disease
DX: R55 Syncope and collapse (principal); Z88.2 Allergy status to sulfonamides; Z86.711 Personal history of pulmonary embolism; Z79.82 Long term (current) use of aspirin
CPT/HCPCS: 33282; C1764; J0690; J2250; J2405; J3010

== ENCOUNTER → 2017-12-16 | Outpatient (REF) | payer BC, OTHER ==
[2017-12-16 15:16] LABS: D-DIMER QUANT 287.7 ng/ml (<500)
== END ==
LOC: M LAB REF 14:43
DX: I26.99 Other pulmonary embolism without acute cor pulmonale (principal)
CPT/HCPCS: 85379

== ENCOUNTER 2018-10-03 05:03 | Emergency (ER) | payer BC, OTHER ==
[~2018-10-03] VITALS: Ht 170.2 cm; Wt 96.8 kg
[~2018-10-03 05:03] MED LIST changes: -ACETAMINOPHEN TAB 650MG DOSE (2X325MG) As Ordered ONE; -ACETAMINOPHEN TAB 650MG DOSE (2X325MG) PO PRN; -LIDOCAINE 1% SDV INJ 30 ML VIAL As Ordered ONE; -LIDOCAINE 2% INJ 100 MG/5 ML SDV (FOR ANES.) As Ordered ONE; -LR 1,000 ML IV ONE; -MIDAZOLAM INJ 2 MG/2 ML VIAL (J2250) As Ordered ONE; -ONDANSETRON 4MG/2ML VIAL (J2405) As Ordered ONE; -ONDANSETRON 4MG/2ML VIAL (J2405) IV ONE; -PROPOFOL 200 MG/20 ML VIAL As Ordered ONE; -fentaNYL 100 MCG/2 ML INJECTION (J3010) As Ordered ONE
[2018-10-03 05:04] VITALS: BP 133/63
[2018-10-03 05:48] LABS: BASO % 0.5 % (0.0-1.0); EOS # 0.2 10^3/uL (0.0-0.50); EOS % 4.1 % (0.0-3.0); HEMATOCRIT 40.9 % (36.0-47.0); HEMOGLOBIN 13.5 g/dl (12.0-15.5); LYMPH # 0.4 10^3/uL (1.5-4.5); LYMPH % 11.4 % (24.0-44.0); MEAN CORPUSCULAR HEMOGLOBIN 29.6 pg (27.0-33.0); MEAN CORPUSCULAR VOLUME 89.7 fl (80.0-96.0); MONO # 0.4 10^3/uL (0.0-0.8); MONO % 10.3 % (0.0-5.0); NEUTROPHILS # 2.8 10^3/uL (1.8-7.7); NEUTROPHILS % 73.4 % (36.0-66.0); PLATELET COUNT, AUTOMATED 240 10^3/uL (150-450); RED BLOOD COUNT 4.56 10^6/uL (4.00-5.40); WHITE BLOOD COUNT 3.9 10^3/uL (4.0-10.0)
[2018-10-03 05:58] LABS: INFLUENZA A AMPLIFICATION POSITIVE (NEGATIVE); INFLUENZA B AMPLIFICATION NEGATIVE (NEGATIVE)
[2018-10-03 06:16] LABS: HCG, SERUM QUALITATIVE NEGATIVE (NEGATIVE)
[2018-10-03 06:19] LABS: BLOOD UREA NITROGEN 6 MG/DL (7-18); CALCIUM LEVEL 8.4 MG/DL (8.5-10.1); CARBON DIOXIDE LEVEL 26 MEQ/L (21-32); CHLORIDE LEVEL 106 MEQ/L (98-107); CK-MB VALUE MASS < 1.0 NG/ML (<3.6); CPK CREATINE PHOSPHOKINASE 86 U/L (26-192); CREATININE FOR GFR 0.71 MG/DL (0.55-1.30); GLOMERULAR FILTRATION RATE > 60.0 (>58); GLUCOSE, FASTING 113 MG/DL (70-100); MB/CK RELATIVE INDEX 1.16 (< OR =4); POTASSIUM SERUM 3.9 MEQ/L (3.5-5.1); SODIUM LEVEL 140 MEQ/L (136-145); TROPONIN I < 0.02 NG/ML (< 0.10)
--- NOTE | 2018-10-03 06:45 | ECGEPIP ---
Stationary ECG Study [facility] - ED Test Date: 2018-10-03 Pat Name: SPEEDY OLIVEIRA Department: Room: - Gender: F Filleter: gt : 1975 Requested By: DELTA MARTINO Order Number: [id number] Reading MD: Oneil Preciado Measurements Intervals [place] Rate: 67 P: 9 [place]: 157 QRS: 60 QRSD: 85 T: 23 QT: 381 QTc: 404 Interpretive Statements SINUS RHYTHM NSTTW ABNORMALITIES SIMILAR TO 01/22/17 Electronically Signed On 10-03-2018 6:44:51 EDT by Oneil Preciado
[2018-10-03] MEDS ORDERED: OSEL75CA PO (07:41)
--- NOTE | 2018-10-03 10:53 | REP ---
CHEST X-RAY, 10/03/2018: Two views. HISTORY: Cough and congestion. COMPARISON STUDY: 01/22/2017 FINDINGS: EKG monitoring electrodes overlie the chest. The lungs are well inflated and clear. A loop recorder is seen projecting in the left precordial region. Pleural angles are sharp. Heart size is normal. Pulmonary vasculature is not increased. No significant bony abnormality seen. IMPRESSION: No active disease. Electronically Signed by Tyrone Sanchez MD 10/03/2018 02:08 P
== END 2018-10-03 08:03 | disposition home or self-care (01) ==
LOC: M ED 05:03
DX: J09.X2 Influenza due to identified novel influenza A virus with other respiratory manifestations (principal); R51 Headache; Z86.711 Personal history of pulmonary embolism; Z79.82 Long term (current) use of aspirin; Z79.899 Other long term (current) drug therapy; Z88.2 Allergy status to sulfonamides; Z91.02 Food additives allergy status

== ENCOUNTER 2019-07-31 10:34 | Emergency (ER) | payer OTHER ==
[~2019-07-31] VITALS: Ht 167.6 cm; Wt 93.9 kg
[~2019-07-31 10:34] MED LIST changes: -ASPI1TAB PO; +ASPI81TA26 PO; +OSEL75CA PO
[2019-07-31] MEDS ORDERED: GI COCKTAIL 50ML BTL(HYOSCYAMINE/MAALOX/LIDOCAINE VISCOUS)(1:3:1) PO ONE (11:15)
[2019-07-31 11:19] LABS: BASO % 0.3 % (0.0-1.0); EOS # 0.1 10^3/uL (0.0-0.5); EOS % 1.9 % (0.0-3.0); HEMATOCRIT 41.6 % (36.0-47.0); HEMOGLOBIN 13.5 g/dl (12.0-15.5); LYMPH # 1.6 10^3/uL (1.5-5.0); LYMPH % 24.9 % (24.0-44.0); MEAN CORPUSCULAR HGB CONC 32.5 g/dl (32.0-36.5); MEAN CORPUSCULAR VOLUME 92.4 fl (80.0-96.0); MONO # 0.4 10^3/uL (0.0-0.8); MONO % 5.9 % (0.0-5.0); NEUTROPHILS # 4.3 10^3/uL (1.5-8.5); NEUTROPHILS % 66.2 % (36.0-66.0); PLATELET COUNT, AUTOMATED 305 10^3/uL (150-450); WHITE BLOOD COUNT 6.4 10^3/uL (4.0-10.0)
[2019-07-31] MEDS ORDERED: TOPI25TA10 PO (11:20)
[2019-07-31] MEDS ORDERED: VYVA50CA4 PO (11:20)
[2019-07-31 11:32] LABS: INR 1.09; PROTHROMBIN TIME 13.8 SECONDS (11.8-14.0)
[2019-07-31 11:33] LABS: PARTIAL THROMBOPLASTIN TIME 28.5 SECONDS (25.0-38.4)
[2019-07-31 11:59] LABS: BLOOD UREA NITROGEN 5 MG/DL (7-18); CALCIUM LEVEL 8.3 MG/DL (8.5-10.1); CARBON DIOXIDE LEVEL 23 MEQ/L (21-32); CHLORIDE LEVEL 111 MEQ/L (98-107); CK-MB VALUE MASS < 1.0 NG/ML (<3.6); CPK CREATINE PHOSPHOKINASE 52 U/L (26-192); CREATININE FOR GFR 0.62 MG/DL (0.55-1.30); GLOMERULAR FILTRATION RATE > 60.0 (>58); GLUCOSE, FASTING 102 MG/DL (70-100); MB/CK RELATIVE INDEX 1.92 (< OR =4); POTASSIUM SERUM 3.6 MEQ/L (3.5-5.1); SODIUM LEVEL 141 MEQ/L (136-145); TROPONIN I < 0.02 NG/ML (< 0.10)
[2019-07-31] MEDS ORDERED: ISOVUE-370 76% 100ML VIAL (Q9967) As Ordered ONE (12:06)
--- NOTE | 2019-07-31 12:09 | REP ---
CHEST SINGLE VIEW: There is no evidence of acute infiltrate. No pleural effusion is seen. The heart is normal in size. The mediastinal silhouette is unremarkable. The visualized osseous structures are intact. IMPRESSION: No acute pulmonary disease. Electronically Signed by Elpidio Chance MD 08/05/2019 09:42 A
--- NOTE | 2019-07-31 12:16 | REP ---
Duplex extremity venous ultrasound: Bilateral lower extremity. History: Chest pain, history of pulmonary embolus. Extensive travel history. Findings: The deep veins are anechoic and fully compressible from the groin to the popliteal fossa in the left and right lower extremity. Color flow imaging is homogeneous. Spectral Doppler interrogation demonstrates intact respiratory variation in flow and normal manual augmentation of flow. There is no evidence of deep vein thrombosis. Impression: Negative bilateral lower extremity duplex venous ultrasound. No evidence of deep vein thrombosis. Electronically Signed by Tyrone Sanchez MD 07/31/2019 12:08 P
--- NOTE | 2019-07-31 13:38 | REP ---
CT PULMONARY ANGIOGRAM: With IV contrast. HISTORY: Chest pain history of pulmonary embolus. Rule out pulmonary embolus. COMPARISON STUDIES: Comparison CT pulmonary angiogram January 22, 2017. CONTRAST DOSE: 75 mL of Isovue [address] TECHNIQUE: Helical scanning is acquired and overlapping 1.5 mm and contiguous 3 mm axial images are reformatted. In addition, maximum intensity projection and multiplanar re-formation images are generated in sagittal and coronal imaging projections. CT PULMONARY ANGIOGRAPHIC FINDINGS: There is good opacification of the pulmonary arterial tree. There is no CT evidence of pulmonary embolus. There is no evidence of aortic aneurysm or dissection. There is a small benign claudia-fissural nodule in the minor fissure. The lung gan are otherwise clear. Minimal linear fibrosis is seen in the left base. No pleural or pericardial effusion is seen. No hilar or mediastinal mass or adenopathy is observed. Visualized upper abdominal structures are unremarkable. Bone window settings show no bony destructive lesion. IMPRESSION: Negative CT pulmonary angiogram. There is no evidence of pulmonary embolus or acute aortic abnormality. No active disease. Electronically Signed by Tyrone Sanchez MD 07/31/2019 08:46 P
[2019-07-31] MEDS ORDERED: KETOROLAC 30 MG/ML VIAL (J1885) IV ONE (14:00)
[2019-07-31] MEDS ORDERED: KETO10TAB PO (15:33)
[2019-07-31 16:15] VITALS: BP 110/61
--- NOTE | 2019-08-01 09:53 | ECGEPIP ---
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
== END 2019-07-31 16:15 | disposition home or self-care (01) ==
LOC: M ED 10:34
DX: R07.89 Other chest pain (principal); Z79.899 Other long term (current) drug therapy; Z79.82 Long term (current) use of aspirin; Z88.1 Allergy status to other antibiotic agents; Z88.2 Allergy status to sulfonamides
CPT/HCPCS: 36415; 71045; 71275; 80048; 82550; 82553; 84484; 85025; 85610; 85730; 93005; 93041; 93970; 94760; 96374; 99285; J1885; Q9967

== ENCOUNTER → 2019-11-03 | Outpatient (REF) | payer OTHER ==
[~2019-11-03] MED LIST changes: +KETO10TAB PO; +TOPI25TA10 PO; +VYVA50CA4 PO
== END ==
LOC: M LAB REF 12:21
PROVIDERS: ATTEND Physician Assistant
DX: R06.00 Dyspnea, unspecified (principal)

== ENCOUNTER → 2019-11-26 | Outpatient (CLI) | payer OTHER ==
--- NOTE | 2019-12-02 14:10 | SLEEPHOME ---
DATE OF STUDY: 11/26/2019 ORDERED BY: Dr. Carroll Diagnostic home sleep testing was performed due to concern for the obstructive sleep apnea syndrome in this patient with a history of excessive somnolence and morning headaches. For testing, a nocturnal T3 respiratory monitoring device was used. Continuous record was made of pulse, oxygen saturation, airflow, chest and abdominal strain, and body position. 9 hours and 59 minutes of data were reviewed. There were 9 hours and 22 minutes marked as time in bed. During the interval marked time in bed, there were only 18 respirator events identified of 10 seconds in duration or greater for a respiratory event index of 1.9. The events were of various sort. Baseline pulse rate was 59 beats per minute. Pulse rate ranged 44 to 84. Baseline saturation was 94%. Saturations remained 91% plus throughout the study. IMPRESSION: Normal diagnostic home sleep test with borderline respiratory patterning.
== END ==
LOC: M SLEEP HO 11:24
PROVIDERS: ATTEND Internal Medicine Pulmonary Disease
DX: R40.0 Somnolence (principal)

== ENCOUNTER → 2019-12-04 | Outpatient (CLI) | payer OTHER ==
[2019-12-04 08:43] LABS: BASO % 0.3 % (0.0-1.0); EOS # 0.2 10^3/uL (0.0-0.5); EOS % 2.3 % (0.0-3.0); HEMOGLOBIN 14.1 g/dl (12.0-15.5); LYMPH # 1.7 10^3/uL (1.5-5.0); LYMPH % 25.7 % (24.0-44.0); MEAN CORPUSCULAR HEMOGLOBIN 30.3 pg (27.0-33.0); MEAN CORPUSCULAR HGB CONC 32.8 g/dl (32.0-36.5); MEAN CORPUSCULAR VOLUME 92.3 fl (80.0-96.0); MONO # 0.5 10^3/uL (0.0-0.8); MONO % 7.7 % (0.0-5.0); NEUTROPHILS # 4.2 10^3/uL (1.5-8.5); NEUTROPHILS % 63.7 % (36.0-66.0); PLATELET COUNT, AUTOMATED 297 10^3/uL (150-450); RED BLOOD COUNT 4.66 10^6/uL (4.00-5.40); WHITE BLOOD COUNT 6.6 10^3/uL (4.0-10.0)
[2019-12-04 09:09] LABS: BLOOD UREA NITROGEN 12 MG/DL (7-18); CALCIUM LEVEL 9.1 MG/DL (8.5-10.1); CARBON DIOXIDE LEVEL 30 MEQ/L (21-32); CHLORIDE LEVEL 107 MEQ/L (98-107); CREATININE FOR GFR 0.74 MG/DL (0.55-1.30); GLOMERULAR FILTRATION RATE > 60.0 (>58); GLUCOSE, FASTING 100 MG/DL (70-100); POTASSIUM SERUM 4.5 MEQ/L (3.5-5.1); SODIUM LEVEL 141 MEQ/L (136-145)
== END ==
LOC: M LAB 08:12
PROVIDERS: ATTEND Internal Medicine Cardiovascular Disease
DX: I27.0 Primary pulmonary hypertension (principal)

== ENCOUNTER → 2019-12-14 | Outpatient (CLI) | payer OTHER ==
--- NOTE | 2019-12-14 23:35 | REP ---
V/Q SCAN: Following the intravenous administration of 5.4 mCi technetium-99m tagged MAA and the inhalation of 1.0 mCi technetium-99m DTPA aerosol, multiple images of the lung gan are obtained in various projections. A few tiny scattered subsegmental perfusion defects are seen bilaterally diffusely. There are no segmental perfusion defects bilaterally. Ventilation images show moderate degree of central deposition of radiotracer in the airways. There is poor activity in the peripheral lungs bilaterally. There is a low probability of pulmonary embolism. Electronically Signed by Elpidio Chance MD 12/15/2019 01:40 P
--- NOTE | 2019-12-15 01:13 | REP ---
Clinical: Idiopathic pulmonary hypertension . Comparison: 07/31/2019 . Technique: PA and lateral. Findings: The mediastinum and cardiac silhouette are normal. The lung gan are clear and without acute consolidation, effusion, or pneumothorax. The skeletal structures are intact and normal. Loop recorder overlies the cardiac silhouette. Impression: 1. No acute cardiopulmonary process. Electronically Signed by Hong Grant MD 12/15/2019 01:05 A
== END ==
LOC: M RAD 13:09
PROVIDERS: ATTEND Internal Medicine Pulmonary Disease
DX: I27.20 Pulmonary hypertension, unspecified (principal)
CPT/HCPCS: 71046; 78582; A9540; A9567

== ENCOUNTER → 2020-06-26 | Outpatient (CLI) | payer SELFPAY | LOC: M LABSMTC 09:50 | PROVIDERS: ATTEND Pediatrics | DX: Z20.828 Contact with and (suspected) exposure to other viral communicable diseases (principal) ==

== ENCOUNTER → 2020-08-02 | Outpatient (CLI) | payer SELFPAY | LOC: M LABSMTC 09:48 | PROVIDERS: ATTEND Pediatrics | DX: Z20.822 Contact with and (suspected) exposure to COVID-19 (principal) ==

== ENCOUNTER → 2020-09-15 | Outpatient (CLI) | payer OTHER ==
[2020-09-15 10:42] LABS: HEMATOCRIT 43.7 % (36.0-47.0); HEMOGLOBIN 13.8 g/dl (12.0-15.5); MEAN CORPUSCULAR HEMOGLOBIN 29.1 pg (27.0-33.0); MEAN CORPUSCULAR HGB CONC 31.6 g/dl (32.0-36.5); MEAN CORPUSCULAR VOLUME 92.2 fl (80.0-96.0); PLATELET COUNT, AUTOMATED 348 10^3/uL (150-450); RED BLOOD COUNT 4.74 10^6/uL (4.00-5.40); WHITE BLOOD COUNT 6.5 10^3/uL (4.0-10.0)
[2020-09-15 11:14] LABS: ALBUMIN 3.9 GM/DL (3.2-5.2); ALT/SGPT 19 U/L (12-78); BILIRUBIN,TOTAL 0.2 MG/DL (0.2-1.0); BLOOD UREA NITROGEN 10 MG/DL (7-18); CALCIUM LEVEL 9.3 MG/DL (8.5-10.1); CARBON DIOXIDE LEVEL 29 MEQ/L (21-32); CHLORIDE LEVEL 107 MEQ/L (98-107); CREATININE FOR GFR 0.79 MG/DL (0.55-1.30); GLOMERULAR FILTRATION RATE > 60.0 (>58); GLUCOSE, FASTING 102 MG/DL (70-100); NT-PRO BNP 175 PG/ML (<125); POTASSIUM SERUM 4.4 MEQ/L (3.5-5.1); SODIUM LEVEL 140 MEQ/L (136-145)
== END ==
LOC: M WUC 09:24
PROVIDERS: ATTEND Physician Assistant
DX: R06.02 Shortness of breath (principal)

== ENCOUNTER → 2020-10-08 | Outpatient (CLI) | payer OTHER ==
[~2020-10-08] MED LIST changes: +ADDE10TA PO; +ADDE30CA3 PO; +ADV250INH INH; +BIOT5CAP PO; +FURO20TA2 PO; +MULT-90 PO; +PROAAER10 INH; +SING10TA32 PO
== END ==
LOC: M LABSMTC 11:00
PROVIDERS: ATTEND Anesthesiology
DX: Z01.812 Encounter for preprocedural laboratory examination (principal); Z20.828 Contact with and (suspected) exposure to other viral communicable diseases

== ENCOUNTER 2020-10-11 15:27 | Day surgery (SDC) | payer OTHER ==
[~2020-10-11] VITALS: Ht 167.6 cm; Wt 102.0 kg
[~2020-10-11 15:27] MED LIST changes: +LR 1,000 ML IV ONE; +ceFAZolin SOD 1 GM in D5W MINI-BAG PLUS 50 ML IV ONE
[2020-10-11] MEDS ORDERED: LIDOCAINE 1% SDV 30ML VIAL As Ordered ONE (17:07)
[2020-10-11] MEDS ORDERED: fentaNYL 100 MCG/2 ML INJECTION (J3010) As Ordered ONE (17:32)
[2020-10-11] MEDS ORDERED: propofoL 200 MG/20 ML VIAL As Ordered ONE (17:32)
[2020-10-11] MEDS ORDERED: LIDOCAINE 2% 100MG/5ML SDV (FOR ANES.) As Ordered ONE (17:32)
[2020-10-11] MEDS ORDERED: MIDAZOLAM INJ 2MG/2ML VIAL (J2250 PER 1MG) As Ordered ONE (17:32)
[2020-10-11 19:00] VITALS: BP 132/74
== END 2020-10-11 19:00 | disposition home or self-care (01) ==
LOC: M SDC 15:27
PROVIDERS: ATTEND Internal Medicine Cardiovascular Disease
DX: Z45.09 Encounter for adjustment and management of other cardiac device (principal); Z88.2 Allergy status to sulfonamides; F90.9 Attention-deficit hyperactivity disorder, unspecified type; G43.909 Migraine, unspecified, not intractable, without status migrainosus; I27.0 Primary pulmonary hypertension; J45.909 Unspecified asthma, uncomplicated; Z79.899 Other long term (current) drug therapy
CPT/HCPCS: 33286; 71046; J0690; J2250; J3010

== ENCOUNTER → 2020-10-11 | Outpatient (CLI) | payer OTHER ==
--- NOTE | 2020-10-12 04:17 | REP ---
INDICATION: MILD INTERMITTENT ASTHMA COMPARISON: 12/14/2019 TECHNIQUE: PA and lateral. FINDINGS: The mediastinum and cardiac silhouette are normal. The lung gan are clear and without acute consolidation, effusion, or pneumothorax. The skeletal structures are intact and normal. Loop recorder noted. IMPRESSION: No acute cardiopulmonary process. <Electronically signed by Hong Grant > 10/12/20 [id number]
--- NOTE | 2020-10-12 09:26 | RO ---
OPERATIVE NOTE DATE OF OPERATION: 10/11/2020 PREOPERATIVE DIAGNOSIS: Battery depletion of subcutaneous cardiac rhythm monitor. POSTOPERATIVE DIAGNOSIS: Battery depletion of subcutaneous cardiac rhythm monitor. FINDINGS: Battery depletion of subcutaneous cardiac rhythm monitor. PROCEDURE PERFORMED: Explantation of subcutaneous cardiac rhythm monitor. SURGEON: Hollis Izquierdo M.D. FORMING DEPARTMENT END FINDER: None. ANESTHESIA: Lidocaine 1% local/monitored anesthetic care. SPECIMENS: Old Medtronic LINQ implantable loop recorded. ESTIMATED BLOOD LOSS: Less than 1 mL. BLOOD PRODUCTS: None replaced. DRAINS: None. COMPLICATIONS: None. DESCRIPTION OF PROCEDURE: The patient was prepped and draped over the sternum and left anterior chest. An incision approximately 1 cm was made through the existing incision over the left breast region with a 15 blade. The existing implanted loop recorder was grabbed with a snap and then removed from the pocket. The skin was then closed using a 4-0 Biosyn suture applied subcuticular with the free ends protruding 1 cm from either end of the incision line. Three layers of Dermabond were applied. The Biosyn suture was then pulled the incision line and removed entirely. The patient tolerated the procedure well without any immediate complications.
== END ==
LOC: M WUC 14:58
PROVIDERS: ATTEND Internal Medicine Pulmonary Disease
DX: J45.20 Mild intermittent asthma, uncomplicated (principal)

== ENCOUNTER → 2020-10-12 | Outpatient (CLI) | payer OTHER ==
[~2020-10-12] MED LIST changes: -LR 1,000 ML IV ONE; -ceFAZolin SOD 1 GM in D5W MINI-BAG PLUS 50 ML IV ONE
== END ==
LOC: M SLEEP HO 10:31
PROVIDERS: ATTEND Physician Assistant
DX: G47.9 Sleep disorder, unspecified (principal)

== ENCOUNTER → 2020-11-21 | Outpatient (CLI) | payer OTHER ==
[~2020-11-21] MED LIST changes: +ADVA230A INH; +COVI100V IM; +TUMS750C5 PO
--- NOTE | 2020-11-21 13:20 | REPMRS ---
Patient History The patient states she has not had a clinical breast exam in over a year. Patient had first child at age 34. Family history of breast cancer at age 31 in sister, endometrial cancer at age 55 in maternal grandmother. Took hormonal contraceptives for 7 years. Pt stated she had a loop recorder placed in 2016 and had it removed August,. 20 lb unintentional weight gain. Moderna vaccine #1 07/22/20 left arm, #2 08/19/20 right arm. Patient states no breast complaints today. Patient has signed MRS History Sheet. Digital Woman Screen Mammo: November 21, 2020 - Exam #: [id number] Bilateral CC and MLO view(s) were taken. Technologist: RT Sohan Prior study comparison: June 17, 2015, bilateral digital mammo screening bilat, performed at [facility]. FINDINGS: There are scattered fibroglandular densities. Screening. Digital screening (2D) mammography was performed bilaterally in the CC and MLO projections. Additionally, breast tomosynthesis (3D mammography) was performed bilaterally in the CC and MLO projections. Todays exam was compared to the prior exams(s). By history, the patient has no complaints of a palpable breast abnormality or other significant breast complaints. There are no prior DBT images for comparison. The breasts are unchanged in size and shape. There are no [place]-soft tissue densities or spiculated masses. There is no internal architectural distortion. There are no suspicious [place]-calcific clusters. Skin thickening or nipple retraction is not present. IMPRESSION: BI-RADS Category 2- Benign Findings(s). There is no evidence of malignant alteration of the breasts. Followup examination recommended in one year. The Volpara volumetric breast density category is B, there are scattered areas of fibroglandular density. This mammogram was read with the assistance of Topera,an FDA approved computer aided detection system for mammography. The lifetime Tyrer-Cuzick score is 27 % Negative x-ray reports should not delay surgical consultation if a dominant or clinically suspicious mass is present. Not all breast cancers can be identified by mammography. Therefore, we recommend that you continue to perform regular breast self-examination and physical examination and then promptly contact your physician of any concerns or changes. Adenosis and dense breasts may obscure an underlying neoplasm. Assessment: BI-RADS/ACR category 2 mammogram. Benign Findings. Recommendation Routine screening mammogram of both breasts in 1 year. Electronically Signed By: Jonathon Agrawal DO 11/21/20 [id number]
== END ==
LOC: M WHC 11:52
PROVIDERS: ATTEND Internal Medicine Medical Oncology
DX: Z12.31 Encounter for screening mammogram for malignant neoplasm of breast (principal)

== ENCOUNTER → 2021-02-21 | Outpatient (REF) | payer OTHER ==
[2021-02-21 13:29] LABS: BASO % 0.3 % (0.0-1.0); EOS # 0.2 10^3/uL (0.0-0.5); EOS % 2.7 % (0.0-3.0); HEMATOCRIT 42.4 % (36.0-47.0); HEMOGLOBIN 13.8 g/dl (12.0-15.5); LYMPH # 1.8 10^3/uL (1.5-5.0); LYMPH % 30.3 % (24.0-44.0); MEAN CORPUSCULAR HEMOGLOBIN 29.4 pg (27.0-33.0); MEAN CORPUSCULAR HGB CONC 32.5 g/dl (32.0-36.5); MEAN CORPUSCULAR VOLUME 90.4 fl (80.0-96.0); MONO # 0.5 10^3/uL (0.0-0.8); MONO % 8.6 % (2.0-8.0); NEUTROPHILS # 3.4 10^3/uL (1.5-8.5); NEUTROPHILS % 57.6 % (36.0-66.0); PLATELET COUNT, AUTOMATED 378 10^3/uL (150-450); RED BLOOD COUNT 4.69 10^6/uL (4.00-5.40); WHITE BLOOD COUNT 5.8 10^3/uL (4.0-10.0)
== END ==
LOC: M LAB REF 12:49
PROVIDERS: ATTEND Internal Medicine Pulmonary Disease
DX: J45.20 Mild intermittent asthma, uncomplicated (principal)

== ENCOUNTER → 2021-10-17 | Outpatient (CLI) | payer OTHER ==
[~2021-10-17] MED LIST changes: +PROHANCE 279.3MG/ML 15ML VIAL As Ordered ONE; +PROHANCE 279.3MG/ML 5ML VIAL As Ordered ONE
== END ==
LOC: M RAD 09:37
PROVIDERS: ATTEND Internal Medicine Medical Oncology
DX: Q74.8 Other specified congenital malformations of limb(s) (principal)

== ENCOUNTER 2023-04-17 22:35 | Emergency (ER) | payer OTHER ==
[~2023-04-17] VITALS: Ht 170.2 cm; Wt 104.9 kg
[~2023-04-17 22:35] MED LIST changes: +FLUT50SP17; -FLUTISP; +MONT-5 PO; -PROHANCE 279.3MG/ML 15ML VIAL As Ordered ONE; -PROHANCE 279.3MG/ML 5ML VIAL As Ordered ONE; -SING10TA32 PO; +SPIR1CAP INH
[2023-04-18 01:15] VITALS: TEMP 97.1
[2023-04-18 01:18] LABS: BLOOD UREA NITROGEN 15 MG/DL (9-23); CALCIUM LEVEL 10.2 MG/DL (8.5-10.1); CARBON DIOXIDE LEVEL 27 MMOL/L (20-31); CHLORIDE LEVEL 104 MMOL/L (98-107); CK-MB VALUE MASS < 1.0 NG/ML (<3.6); GLOMERULAR FILTRATION RATE > 60.0 (>58); GLUCOSE, FASTING 106 MG/DL (60-100); POTASSIUM SERUM 4.4 MMOL/L (3.5-5.1); SODIUM LEVEL 139 MMOL/L (136-145)
[2023-04-18 01:32] LABS: CPK CREATINE PHOSPHOKINASE 93 U/L (34-145); MB/CK RELATIVE INDEX 1.07 (< OR =4)
[2023-04-18 01:58] LABS: BASO % 0.4 % (0.0-1.0); EOS # 0.1 10^3/uL (0.0-0.5); HEMATOCRIT 42.2 % (36.0-47.0); HEMOGLOBIN 13.7 g/dl (12.0-15.5); LYMPH # 2.2 10^3/uL (1.5-5.0); LYMPH % 30.4 % (24.0-44.0); MEAN CORPUSCULAR HEMOGLOBIN 29.1 pg (27.0-33.0); MEAN CORPUSCULAR HGB CONC 32.5 g/dl (32.0-36.5); MEAN CORPUSCULAR VOLUME 89.8 fl (80.0-96.0); MONO # 0.4 10^3/uL (0.0-0.8); MONO % 5.7 % (2.0-8.0); NEUTROPHILS # 4.3 10^3/uL (1.5-8.5); NEUTROPHILS % 61.2 % (36.0-66.0); PLATELET COUNT, AUTOMATED 314 10^3/uL (150-450); WHITE BLOOD COUNT 7.1 10^3/uL (4.0-10.0)
[2023-04-18 02:27] LABS: CK-MB VALUE MASS < 1.0 NG/ML (<3.6)
[2023-04-18 02:28] LABS: CPK CREATINE PHOSPHOKINASE 77 U/L (34-145); MB/CK RELATIVE INDEX 1.29 (< OR =4)
[2023-04-18 03:46] VITALS: BP 134/74
[2023-04-18 04:05] VITALS: O2SAT 95
== END 2023-04-18 04:35 | disposition left against medical advice (07) ==
LOC: M ED 22:35
DX: Z53.21 Procedure and treatment not carried out due to patient leaving prior to being seen by health care provider (principal)

== ENCOUNTER → 2023-12-05 | Outpatient (REF) | payer OTHER ==
[~2023-12-05] MED LIST changes: -FLUT50SP17; +FLUTISP
== END ==
LOC: M SFHCWAGY 17:25
PROVIDERS: ATTEND Nurse Practitioner Family
DX: Z12.4 Encounter for screening for malignant neoplasm of cervix (principal)
CPT/HCPCS: 87624; G0123